=== PATIENT | male | born 1955 | race Two or more races ===

== ENCOUNTER 2024-03-17 02:05 | Emergency (ER) | payer MEDICARE, OTHER ==
[~2024-03-17] VITALS: Ht 188 cm; Wt 76.0 kg
[2024-03-17 02:16] VITALS: BP 133/51; PULSE 60; RESP 18; TEMP 97.9; O2SAT 98
[2024-03-17] MEDS ORDERED: TRIA10.8 NASAL (02:33)
[2024-03-17] MEDS ORDERED: TIMO5DRO20 OU (02:33)
[2024-03-17] MEDS ORDERED: LACT20PA6 PO (02:33)
[2024-03-17] MEDS ORDERED: XALA2.5OS OU (02:33)
[2024-03-17] MEDS ORDERED: LEVAHFA IH (02:33)
[2024-03-17] MEDS ORDERED: [UNRECOGNIZED DRUG - CODE] IM (02:33)
[2024-03-17] MEDS ORDERED: FOLI-130 PO (02:33)
[2024-03-17] MEDS ORDERED: CYAN100099 PO (02:33)
[2024-03-17] MEDS ORDERED: TERA5CAP77 PO (02:33)
[2024-03-17] MEDS ORDERED: FERR-82 PO (02:33)
[2024-03-17] MEDS ORDERED: CALC-613 PO (02:33)
[2024-03-17] MEDS ORDERED: BISA-72 PO (02:33)
[2024-03-17] MEDS ORDERED: MORPHINE SULFATE 10 MG/ML VIAL IM ONE (03:30)
[2024-03-17] MEDS ORDERED: MORP-130 PO (03:40)
[2024-03-17] MEDS ORDERED: ACET-2080 PO (03:40)
[2024-03-17] MEDS ORDERED: NALO4SPR NASAL (03:40)
[2024-03-17] MEDS: MORPHINE SULFATE 4 MG/ML SYRINGE IM ONE (03:51)
== END 2024-03-17 03:58 | disposition home or self-care (01) ==
LOC: EMS 02:05
DX: G89.3 Neoplasm related pain (acute) (chronic) (principal); C64.9 Malignant neoplasm of unspecified kidney, except renal pelvis; Z76.0 Encounter for issue of repeat prescription
CPT/HCPCS: 99283; 96372; J2270